=== PATIENT | female | born 1960 | race Two or more races ===

== ENCOUNTER 2016-11-25 20:01 | Emergency (ER) | payer MEDICAID ==
[~2016-11-25] VITALS: Ht 167.6 cm; Wt 49.9 kg
[2016-11-25 20:11] VITALS: BP 150/86
== END 2016-11-25 23:31 | disposition home or self-care (01) ==
LOC: ER 20:03
DX: F41.9 Anxiety disorder, unspecified (principal); G47.00 Insomnia, unspecified; F32.9 Major depressive disorder, single episode, unspecified
CPT/HCPCS: A4606; Z7610

== ENCOUNTER 2016-12-02 11:11 | Emergency (ER) | payer MEDICAID ==
[~2016-12-02] VITALS: Ht 167.6 cm; Wt 49.9 kg
--- NOTE | 2016-12-02 11:40 | NUR ---
DR ALEXANDER AT BEDSIDE FOR EVAL.
--- NOTE | 2016-12-02 11:45 | NUR ---
LEHR OPERATOR AT BEDSIDE FOR BLOOD DRAW.
[2016-12-02 11:50] LABS: BASOPHILS # (AUTO) 0.1 /CMM (0.0-0.2); BASOPHILS % (AUTO) 0.7 % (0.0-2.0); EOSINOPHILS % (AUTO) 0.5 % (0.0-6.0); HEMATOCRIT 44 % (33-45); HEMOGLOBIN 14.4 g/dL (11.5-14.8); LYMPHOCYTES # (AUTO) 1.2 /CMM (0.8-4.8); LYMPHOCYTES % (AUTO) 16.9 % (20.0-44.0); MEAN CORPUSCULAR HEMOGLOBIN 33 PG (26.0-33.0); MEAN CORPUSCULAR HGB CONC 33 g/dl (31.0-36.0); MEAN CORPUSCULAR VOLUME 101 fL (82-100); MONOCYTES # (AUTO) 0.5 /CMM (0.1-1.30); MONOCYTES % (AUTO) 7.4 % (2.0-12.0); NEUTROPHILS # (AUTO) 5.4 /CMM (1.8-8.9); NEUTROPHILS % (AUTO) 74.5 % (43.0-81.0); PLATELET COUNT (AUTO) 339 /CMM (150-450); RDW COEFFICIENT OF VARIATION 11.6 (11.5-15.0); RED BLOOD CELL COUNT(AUTO) 4.36 MIL/uL (4.0-5.2); WHITE BLOOD COUNT (AUTO) 7.2 K/uL (4.3-11.0)
[2016-12-02 12:02] LABS: CALCIUM, SERUM 9.3 mg/dL (8.5-10.1); CARBON DIOXIDE 28 mmol/L (21-32); CHLORIDE 102 mmol/L (98-107); CREATININE 0.7 mg/dL (0.6-1.3); GFR 87 mL/min (>60); GLUCOSE 108 mg/dL (74-106); POTASSIUM 3.7 mmol/L (3.5-5.1); SODIUM SERUM 137 mmol/L (136-145); UREA NITROGEN, BLOOD 16 mg/dL (7-18)
[2016-12-02 12:07] LABS: ALANINE AMINOTRANSFERASE 18 U/L (12-78); ALBUMIN 3.9 g/dL (3.4-5.0); ALCOHOL, BLOOD < 3 mg/dL (0-0); ALKALINE PHOSPHATASE 63 U/L (46-116); ASPARTATE AMINOTRANSFERASE 18 U/L (15-37); BILIRUBIN,DIRECT 0.1 mg/dL (0.0-0.2); BILIRUBIN,TOTAL 0.5 mg/dL (0.2-1.0); TOTAL PROTEIN, SERUM 7.3 g/dL (6.4-8.2)
[2016-12-02 12:07] LABS: APPEARANCE,URINE Slightly Cloudy (CLEAR); BILIRUBIN,URINE Negative (NEGATIVE); BLOOD, URINE Trace-lysed Ery/uL (NEGATIVE); COLOR,URINE Yellow (YELLOW); KETONES,URINE Negative (NEGATIVE); LEUKOCYTE ESTERASE ,URINE Large (NEGATIVE); NITRITE, URINE Negative (NEGATIVE); PROTEIN,URINE Negative (NEGATIVE); UGLUCOSE Negative (NEGATIVE); UROBILINOGEN,URINE 0.2 EU/dL (0.2)
[2016-12-02 12:08] LABS: ACETAMINOPHEN 0 ug/ml (10-30); SALICYLATE 0.9 mg/dL (2.8-20.0)
--- NOTE | 2016-12-02 12:14 | NUR ---
CALLED FLORENTINO FOR PSYCH EVAL.
[2016-12-02 12:15] LABS: ADD URINE CULTURE YES; BACTERIA,URINE 1+ /HPF (None Seen); SQUAMOUS EPITHELIAL CELL,UR Few /HPF (None Seen); URINE AMORPHOUS PHOSPHATES Few /HPF (None Seen)
[2016-12-02 12:20] LABS: CANNABINOID, URINE NEGATIVE (NEGATIVE); PHENCYCLIDINE SCREEN,URINE NEGATIVE (NEGATIVE)
--- NOTE | 2016-12-02 13:12 | NUR ---
FLORENTINO AT BEDSIDE FOR PSYCH EVAL.
--- NOTE | 2016-12-02 14:26 | NUR ---
Patient discharged to home in stable condition. Written and verbal after care instructions given. Patient verbalizes understanding of instruction.
[2016-12-02 14:28] VITALS: BP 132/98
== END 2016-12-02 14:28 | disposition home or self-care (01) ==
LOC: ER 11:17
DX: F41.9 Anxiety disorder, unspecified (principal); G47.00 Insomnia, unspecified; F32.9 Major depressive disorder, single episode, unspecified
CPT/HCPCS: 36415; 80048; 80076; 80305; 80329; 81001; 85025; 87077; 87086; 87186; 99284; A4606; G0480 ×2; Z7610; 81000-TC; G6039-TC

== ENCOUNTER 2016-12-07 07:04 | Emergency (ER) | payer MEDICAID ==
[~2016-12-07] VITALS: Ht 167.6 cm; Wt 48.5 kg
--- NOTE | 2016-12-07 07:55 | NUR ---
AAOX3, CAME TO ER C/O ANXIETY, UNABLE TO SLEEP, DENIES SI PT STATES "BEEN ANXIOUS WITH MY HEART BEATING SO FAST FOR 6 WEEKS AND CANT SLEEP" "NOT SURE WHAT TO DO"; DENIES SI/HI. 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 DR MARR AT FOR EVAL. WILL CONTINUOUSLY MONITOR THE PATIENT.
[2016-12-07 08:03] VITALS: BP 118/85
--- NOTE | 2016-12-07 08:03 | NUR ---
Patient discharged to home in stable condition. Written and verbal after care instructions given. Patient verbalizes understanding of instruction.
== END 2016-12-07 08:04 | disposition home or self-care (01) ==
LOC: ER 07:06
DX: G47.00 Insomnia, unspecified (principal); F41.9 Anxiety disorder, unspecified; F32.9 Major depressive disorder, single episode, unspecified
CPT/HCPCS: 99284; A4606; Z7610

== ENCOUNTER 2017-02-25 15:23 | Inpatient (IN) | payer BC, MEDICAID, OTHER ==
[~2017-02-25] VITALS: Ht 167.6 cm; Wt 56.7 kg
--- NOTE | 2017-02-25 15:50 | NUR ---
PT BIBA EX FOR SUICIDAL THOUGHTS. PT NOTED ANXIOUS, DENIES ACTIVE PLANS ON HURTING HERSELF, COOPERATIVE. AAOX3. AT FOR EVAL. VSS. SAFETY AND COMFORT MEASURES PROVIDED. WILL MONITOR.
[2017-02-25] MEDS ORDERED: LORAZEPAM 1 MG TABLET ONE (15:55)
[2017-02-25] MEDS ORDERED: LORAZEPAM 1 MG TABLET PO ONE (16:00)
[2017-02-25 16:08] LABS: BASOPHILS # (AUTO) 0.1 /CMM (0.0-0.2); BASOPHILS % (AUTO) 0.8 % (0.0-2.0); EOSINOPHILS # (AUTO) 0.1 /CMM (0.0-0.7); EOSINOPHILS % (AUTO) 1.7 % (0.0-6.0); HEMATOCRIT 41 % (33-45); LYMPHOCYTES # (AUTO) 1.7 /CMM (0.8-4.8); LYMPHOCYTES % (AUTO) 26.3 % (20.0-44.0); MEAN CORPUSCULAR HEMOGLOBIN 35 PG (26.0-33.0); MEAN CORPUSCULAR HGB CONC 34 g/dl (31.0-36.0); MEAN CORPUSCULAR VOLUME 101 fL (82-100); MONOCYTES # (AUTO) 0.6 /CMM (0.1-1.30); MONOCYTES % (AUTO) 9.5 % (2.0-12.0); NEUTROPHILS # (AUTO) 3.9 /CMM (1.8-8.9); NEUTROPHILS % (AUTO) 61.7 % (43.0-81.0); PLATELET COUNT (AUTO) 278 /CMM (150-450); RDW COEFFICIENT OF VARIATION 11.3 (11.5-15.0); RED BLOOD CELL COUNT(AUTO) 4.06 MIL/uL (4.0-5.2); WHITE BLOOD COUNT (AUTO) 6.4 K/uL (4.3-11.0)
--- NOTE | 2017-02-25 16:16 | NUR ---
PT MEDICATED ORDERED.
[2017-02-25 16:18] LABS: CALCIUM, SERUM 8.8 mg/dL (8.5-10.1); CARBON DIOXIDE 29 mmol/L (21-32); CHLORIDE 108 mmol/L (98-107); CREATININE 0.7 mg/dL (0.6-1.3); GLUCOSE 102 mg/dL (74-106); SODIUM SERUM 143 mmol/L (136-145); UREA NITROGEN, BLOOD 27 mg/dL (7-18)
[2017-02-25 16:20] LABS: APPEARANCE,URINE Clear (CLEAR); BILIRUBIN,URINE Negative (NEGATIVE); BLOOD, URINE Negative Ery/uL (NEGATIVE); COLOR,URINE Yellow (YELLOW); KETONES,URINE Negative (NEGATIVE); LEUKOCYTE ESTERASE ,URINE Small (NEGATIVE); NITRITE, URINE Negative (NEGATIVE); PH,URINE 5.5 (5.0-8.0); PROTEIN,URINE Trace mg/dl (NEGATIVE); UGLUCOSE Negative (NEGATIVE); UROBILINOGEN,URINE 0.2 EU/dL (0.2)
[2017-02-25 16:35] LABS: ALANINE AMINOTRANSFERASE 20 U/L (12-78); ALBUMIN 3.6 g/dL (3.4-5.0); ALCOHOL, BLOOD < 3 mg/dL (0-0); ALKALINE PHOSPHATASE 55 U/L (46-116); ASPARTATE AMINOTRANSFERASE 14 U/L (15-37); BILIRUBIN,DIRECT 0.1 mg/dL (0.0-0.2); BILIRUBIN,TOTAL 0.3 mg/dL (0.2-1.0); TOTAL PROTEIN, SERUM 6.8 g/dL (6.4-8.2)
[2017-02-25 16:37] LABS: SALICYLATE 1.4 mg/dL (2.8-20.0)
--- NOTE | 2017-02-25 16:37 | NUR ---
CRISTINA ETA 1 HOUR FOR PSYCH EVAL
[2017-02-25 16:38] LABS: ACETAMINOPHEN < 2 ug/ml (10-30)
[2017-02-25 16:39] LABS: BACTERIA,URINE Rare /HPF (None Seen); RBC,URINE NONE SEEN /HPF (0-2); SQUAMOUS EPITHELIAL CELL,UR Few /HPF (None Seen)
[2017-02-25] MEDS ORDERED: CIPROFLOXACIN HCL 500 MG TABLET PO ONE (17:00)
[2017-02-25] MEDS ORDERED: CIPROFLOXACIN HCL 500 MG TABLET ONE (17:08)
[2017-02-25] MEDS ORDERED: OLAN5TAB3 PO (17:11)
[2017-02-25] MEDS ORDERED: METO25TA6 PO (17:11)
[2017-02-25] MEDS ORDERED: MIRT30TA7 PO (17:11)
[2017-02-25] MEDS ORDERED: LORA0.5T PO (17:11)
[2017-02-25] MEDS ORDERED: LEVO88TA5 PO (17:11)
--- NOTE | 2017-02-25 17:15 | NUR ---
CRISTINA LANG COIL WINDING SUPERVISOR AT FOR EVAL.
--- NOTE | 2017-02-25 18:14 | NUR ---
REPORT GIVEN TO NEGAR LANG FOR GPS ROOM 216-B
--- NOTE | 2017-02-25 18:56 | NUR ---
PT. ARRIVED IN THE UNIT VIA A WHEELCHAIR AND WHEELED BY ER STAFF WITH THE EX-. PT. BROUGHT TO ROOM 216B, CONTRABAND DONE BY WOOL SORTER AND V/S TAKEN. DR. HERBERT NOTIFIED ABOUT THE ADMISSION AND GAVE ORDERS. ENDORSED TO THE INCOMING NURSE FOR THE COMPLETION OF THE ADMISSION.
[2017-02-25] MEDS ORDERED: MAG HYDROX/AL HYDROX/SIMETH 30 ML UDC PO PRN (19:00)
[2017-02-25] MEDS ORDERED: ACETAMINOPHEN 325 MG TABLET PO PRN (19:00)
[2017-02-25 19:21] VITALS: BP 98/70
[2017-02-25 20:00] VITALS: BP 98/70
--- NOTE | 2017-02-25 21:36 | NUR ---
GPS RN ADMITTED NOTES ADMITTED THIS 56Y/O FEMALE FROM [facility] ER/HOME , PT. CAME TO THE UNIT VIA STRETCHER ACCOMPANIED VIA ER STAFF. IS ON 5150 HOLD FOR DANGER TO SELF PER HOLD PT HAVING SUICIDAL IDEATION WITH PLAN TO OVER DOSE ON PILLS AND CUT WRIST WITH A KNIFE AND HAVING DELUSIONAL THINKING ,PARANOIA ,UPON ASSESSMENT PT. DENIES SUICIDAL PLAN AT TIS TIME , PT. AGGRESSIVE ANXIOUS , MENTAL HX DEPRESSION ANXIETY , MEDICAL HX OF HYPERTENSION. PT. REFUSED SKIN ASSESSMENT PT. STATED MY SKIN CLEAR, ENCOURAGED FOR SKIN ASSESSMENT STILL REFUSED , BOTH MD AWARE OF NEW ADMISSION NEW ORDERS RECEIVED AND CARRIED OUT, REORIENT TO UNIT POLICES AND CONTRABAND CHECKS , WILL CONTINUE TO MONITOR FOR SAFETY AND BEHAVIOR
--- NOTE | 2017-02-25 22:00 | NUR ---
RN GPS NOTES DR. LEDEZMA HERE IN THE UNIT , NOTIFY ABOUT PT. RECEIVED IN [facility] ER KEFLEX 500MG PO X1 , NO NEW ORDERS RECEIVE
[2017-02-26] MEDS: TEMAZEPAM 7.5 MG CAPSULE PO PRN ×2 (00:46→21:31)
[2017-02-26 03:27] VITALS: BP 110/72
--- NOTE | 2017-02-26 06:35 | NUR ---
RN GPS NOTES PT. SLEPT 5 HOURS , DENIES SUICIDAL IDEATION DURING SHIFT , NO ACUTE DISTRESS NOTED ,ENDORSE TO NEXT SHIFT FOR CONTINUITY OF CARE .
--- NOTE | 2017-02-26 07:22 | NUR ---
RN GPS NOTES PT. REFUSED MRSA SCREENING AND SKIN ASSESSMENT ENCOURAGED, STILL REFUSED .
[2017-02-26 08:00] VITALS: BP 100/68
[2017-02-26 08:14] LABS: ALBUMIN 3.2 g/dL (3.4-5.0); BILIRUBIN,TOTAL 0.3 mg/dL (0.2-1.0); CALCIUM, SERUM 8.8 mg/dL (8.5-10.1); CREATININE 0.7 mg/dL (0.6-1.3); POTASSIUM 4.4 mmol/L (3.5-5.1); TOTAL PROTEIN, SERUM 6.1 g/dL (6.4-8.2)
[2017-02-26] MEDS: LEVOTHYROXINE SODIUM 88 MCG TABLET PO SCH ×2 (08:36→08:50)
[2017-02-26] MEDS: METOPROLOL TARTRATE 25 MG TABLET PO SCH ×2 (08:54→17:00)
[2017-02-26] MEDS: LORAZEPAM 0.5 MG TABLET PO PRN (09:18)
--- NOTE | 2017-02-26 09:19 | NUR ---
BROILER CHEF OR COOK-NOTES PATIENT REQUESTING ATIVAN FOR HER ANXIETY. ATIVAN 1MG P.O GIVEN PRN ORDER. WILL CONT. MONITORING FOR SAFETY AND BEHAVIOR.
[2017-02-26] MEDS: DULOXETINE HCL 30 MG CAPSULE.DR PO SCH (12:48)
[2017-02-26 16:00] VITALS: BP 102/71
[2017-02-26] MEDS: QUETIAPINE FUMARATE 25 MG TABLET PO SCH (16:46)
--- NOTE | 2017-02-26 18:17 | NUR ---
CURING BIN OPERATOR-NOTES PATIENT STRONGLY REFUSED BODY CHECK DESPITE EXPLANATIONS OF HOSPITAL POLICIES.
[2017-02-26 20:07] VITALS: BP 107/73
[2017-02-26] MEDS: CEPHALEXIN MONOHYDRATE 500 MG CAPSULE PO SCH (21:31)
[2017-02-26] MEDS ORDERED: QUETIAPINE FUMARATE 25 MG TABLET PO SCH (22:00)
--- NOTE | 2017-02-26 23:43 | NUR ---
PT C/O INSOMNIA. RESTORIL 7.5 MG/PO GIVEN AT 2131 HRS. EFFECTIVE. POST 1 HOUR ASLEEP IN BED EASY TO AROUSE. WILL CONTINUE TO MONITOR. FREQUENT VISUAL CHECK DONE.
[2017-02-27] MEDS: LEVOTHYROXINE SODIUM 88 MCG TABLET PO SCH (07:34)
[2017-02-27 08:00] VITALS: BP 128/74
[2017-02-27] MEDS: CEPHALEXIN MONOHYDRATE 500 MG CAPSULE PO SCH ×2 (08:42→20:32)
[2017-02-27] MEDS: DULOXETINE HCL 30 MG CAPSULE.DR PO SCH (08:42)
[2017-02-27] MEDS: QUETIAPINE FUMARATE 25 MG TABLET PO SCH ×3 (08:43→20:32)
[2017-02-27] MEDS: METOPROLOL TARTRATE 25 MG TABLET PO SCH ×2 (08:44→16:48)
[2017-02-27] MEDS: LORAZEPAM 0.5 MG TABLET PO PRN ×2 (11:18→17:45)
--- NOTE | 2017-02-27 11:19 | NUR ---
RUG TOUCH UP PAINTER-NOTES NOTED PATIENT PACING IN AND OUT HER ROOM,FOCUSING ON HER HEALTH AND CLAIMING SHE WAS NEVER SEEN BY ANY OF THE DOCTORS SINCE HER ADMISSION. PER RECORD SHE WAS SEEN BY BOTH PSYCHIATRIST AND MEDICAL DOCTORS. REDIRECTED RE ASSURED PATIENT THAT MD'S ARE GOING TO SEE HER AGAIN TODAY. OFFERED ATIVAN AND AGREES. ATIVAN 1MG P.O GIVEN PRN ORDER.WILL CONT. MONITORING FOR SAFETY AND BEHAVIOR.
--- NOTE | 2017-02-27 13:10 | NUR ---
Patient lives alone at [id number] [place], [place] [id number]. Per patient, she is supposed to be vacating her apartment in 10 days. Patient will possibly need placement. antique auto museum maintenance worker spoke to patient's sister Karina ([phone]) and patient's ex- Taurus Gonsalez ([phone]) who confirmed that patient will have to vacate her apartment and that patient does not have any income. antique auto museum maintenance worker will help form a safe and proper discharge.
--- NOTE | 2017-02-27 14:02 | NUR ---
UR Update: lunchroom worker lindsay Tiara ([phone] ext. [phone]) pillowcase cleaner [facility] a voicemail with a clinical review. lunchroom worker will follow-up. Addendum: 02/27/17 at 1405 by JANKI KONG Authorization # [id number]
[2017-02-27] MEDS: ASPIRIN 81 MG TAB.CHEW PO SCH (15:17)
[2017-02-27 16:00] VITALS: BP 103/73
--- NOTE | 2017-02-27 16:18 | NUR ---
UR Update: clothing trades workers spoke to Tiara ([phone] ext. [phone]) immigration case manager for [facility] who authorized another day with a review due Wednesday March 01, 2017. farmworker rice will follow- up. Authorization # [id number]
--- NOTE | 2017-02-27 17:47 | NUR ---
OUTBOUND SALES REPRESENTATIVE-NOTES PATIENT REQUESTING ATIVAN FOR HER ANXIETY. ATIVAN 1MG P.O GIVEN PRN ORDER. WILL CONT. MONITORING FOR SAFETY AND BEHAVIOR.
--- NOTE | 2017-02-27 17:49 | NUR ---
EAP SPECIALIST-NOTES PATIENT AMBULATING IN THE HALLWAY,NO ACUTE DISTRESS NOTED.ALL NEEDS ATTENDED AND ANTICIPATED. ENDORSED TO THE CHARGE NURSE FOR CONTINUITY OF CARE.
[2017-02-27] MEDS: MAGNESIUM HYDROXIDE 30 ML UDC PO PRN (20:32)
[2017-02-27] MEDS ORDERED: QUETIAPINE FUMARATE 25 MG TABLET PO SCH (22:00)
[2017-02-27 22:30] VITALS: BP 108/79
[2017-02-28] MEDS: TEMAZEPAM 7.5 MG CAPSULE PO PRN ×2 (00:31→21:37)
[2017-02-28] MEDS: LEVOTHYROXINE SODIUM 88 MCG TABLET PO SCH (07:47)
[2017-02-28 08:00] VITALS: BP_SYST 94; BP_SYST 98; BP_DIAS 67; BP_DIAS 70
[2017-02-28] MEDS: DULOXETINE HCL 30 MG CAPSULE.DR PO SCH (08:37)
[2017-02-28] MEDS: CEPHALEXIN MONOHYDRATE 500 MG CAPSULE PO SCH ×2 (08:37→21:31)
[2017-02-28] MEDS: ASPIRIN 81 MG TAB.CHEW PO SCH (08:37)
[2017-02-28] MEDS: QUETIAPINE FUMARATE 25 MG TABLET PO SCH ×2 (08:38→21:31)
[2017-02-28] MEDS: METOPROLOL TARTRATE 25 MG TABLET PO SCH ×2 (09:00→17:16)
[2017-02-28] MEDS: LORAZEPAM 0.5 MG TABLET PO PRN ×2 (11:27→18:10)
--- NOTE | 2017-02-28 11:28 | NUR ---
PRODUCT SCIENTIST-NOTES PATIENT stated" I NEED ATIVAN FOR HER ANXIETY". ATIVAN 1MG P.O GIVEN PRN ORDER. WILL CONT. MONITORING FOR SAFETY AND BEHAVIOR.
--- NOTE | 2017-02-28 15:10 | NUR ---
gas plant worker spoke to patient's sister Karina ([phone]) who stated that patient will be living with her mother at [address] [facility] [address]. Karina stated that either she or her ex- Taurus Gonsalez ([phone]) would pick her up. gas plant worker will follow-up.
[2017-02-28 16:00] VITALS: BP 116/74
--- NOTE | 2017-02-28 18:11 | NUR ---
MAMMAL CONTROL AGENT-NOTES PATIENT C/O ANXIETY AND REQUESTING FOR ATIVAN. ATIVAN 1MG P.O GIVEN PRN ORDER. WILL CONT. MONITORING FOR SAFETY AND BEHAVIOR.
--- NOTE | 2017-02-28 19:45 | NUR ---
RN OPENING NOTES RECEIVED REPORT FROM DAYSHIFT RN. FOUND Pt ASLEEP IN ROOM. EQUAL CHEST RISE AND FALL. NO S/S OF ACUTE DISTRESS OR SOB NOTED. SAFETY MEASURES IN PLACE. WILL CONTINUE TO MONITOR Pt THROUGHOUT THE NIGHT FOR SAFETY AND BEHAVIOR.
[2017-02-28 21:16] VITALS: BP 99/63
[2017-02-28] MEDS: MAGNESIUM HYDROXIDE 30 ML UDC PO PRN (21:36)
[2017-02-28 22:00] VITALS: BP 99/63
--- NOTE | 2017-03-01 06:45 | NUR ---
RN CLOSING NOTES NO SIGNIFICANT CHANGES NOTED DURING THE NIGHT. ALL NEEDS MET AND ATTENDED TO. NO S/S OF ACUTE DISTRESS OR SOB NOTED. SAFETY MEASURES IN PLACE. WILL ENDORSE TO DAYSHIFT RN FOR Pt's TUNG.
[2017-03-01 08:05] VITALS: BP 91/71
[2017-03-01] MEDS: LEVOTHYROXINE SODIUM 88 MCG TABLET PO SCH (08:27)
[2017-03-01] MEDS: DULOXETINE HCL 30 MG CAPSULE.DR PO SCH (08:52)
[2017-03-01] MEDS: ASPIRIN 81 MG TAB.CHEW PO SCH (08:53)
[2017-03-01] MEDS: QUETIAPINE FUMARATE 25 MG TABLET PO SCH ×3 (08:54→21:12)
[2017-03-01] MEDS: METOPROLOL TARTRATE 25 MG TABLET PO SCH ×2 (08:54→17:22)
[2017-03-01] MEDS: LORAZEPAM 0.5 MG TABLET PO PRN ×2 (09:36→17:23)
--- NOTE | 2017-03-01 09:36 | NUR ---
administered ativan 1 mg po prn for anxiety per patient request bp -103/65, p-79, continued monitoring.
--- NOTE | 2017-03-01 15:04 | NUR ---
UR Update: pressed or blown glass worker lindsay Menjivar ([phone] ext. [phone]) lining caser for [facility] a voicemail with a clinical review. pressed or blown glass worker will follow-up. Authorization # [id number]
[2017-03-01 16:11] VITALS: BP 105/73
--- NOTE | 2017-03-01 17:23 | NUR ---
ADMINISTERED ATIVAN 1 MG PO PRN FOR ANXIETY, PER PATIENT REQUEST, V/S TAKEN BP-116/75, P-101, CONTINUED MONITORING.
[2017-03-01] MEDS: MAGNESIUM HYDROXIDE 30 ML UDC PO PRN (18:41)
--- NOTE | 2017-03-01 18:41 | NUR ---
ADMINISTERED MILK OF MAGNESIA 30 MG/ML PO PRN FOR CONSTIPATION, CONTINUED MONITORING.
[2017-03-01 20:07] VITALS: BP 105/57
[2017-03-01] MEDS: TEMAZEPAM 7.5 MG CAPSULE PO PRN (21:31)
[2017-03-02] MEDS: LEVOTHYROXINE SODIUM 88 MCG TABLET PO SCH (07:59)
[2017-03-02 08:00] VITALS: BP 102/69
[2017-03-02] MEDS: DULOXETINE HCL 30 MG CAPSULE.DR PO SCH (08:00)
[2017-03-02] MEDS: METOPROLOL TARTRATE 25 MG TABLET PO SCH ×2 (08:00→16:59)
[2017-03-02] MEDS: ASPIRIN 81 MG TAB.CHEW PO SCH (08:00)
[2017-03-02] MEDS: QUETIAPINE FUMARATE 25 MG TABLET PO SCH ×4 (08:00→21:28)
[2017-03-02] MEDS: LORAZEPAM 0.5 MG TABLET PO PRN (11:11)
--- NOTE | 2017-03-02 11:12 | NUR ---
GPS RN: ATIVAN 1MG ADMINISTERED FOR C/O ANXIETY, PATIENT IS RESTLESS, INSTRUCTED ON RELAXATION, DEEP BREATHING, PROVIDED WITH CALM AND SAFE ENVIRONMENT. NO S/S OF ACUTE DISTRESS, CONTINUE TO MONITOR THE PATIENT.
[2017-03-02 16:00] VITALS: BP 100/67
[2017-03-02] MEDS: BOOST PLUS FOOD-VANILLA 237 ML BOX PO SCH (17:45)
[2017-03-02 19:45] VITALS: BP 103/72
[2017-03-02 20:00] VITALS: BP_SYST 102; BP_SYST 103; BP_DIAS 65; BP_DIAS 72
[2017-03-02] MEDS: TEMAZEPAM 7.5 MG CAPSULE PO PRN (21:29)
[2017-03-03 08:42] VITALS: BP 111/68
[2017-03-03] MEDS: LEVOTHYROXINE SODIUM 88 MCG TABLET PO SCH (08:42)
[2017-03-03] MEDS: ASPIRIN 81 MG TAB.CHEW PO SCH (08:42)
[2017-03-03] MEDS: METOPROLOL TARTRATE 25 MG TABLET PO SCH (08:42)
[2017-03-03] MEDS: QUETIAPINE FUMARATE 25 MG TABLET PO SCH ×2 (08:42→13:31)
[2017-03-03] MEDS: BOOST PLUS FOOD-VANILLA 237 ML BOX PO SCH (08:43)
[2017-03-03] MEDS ORDERED: DULOXETINE HCL 30 MG CAPSULE.DR PO SCH (09:00)
[2017-03-03] MEDS: LORAZEPAM 0.5 MG TABLET PO PRN (09:26)
--- NOTE | 2017-03-03 09:26 | NUR ---
GPS RN: ATIVAN 1MG ADMINISTERED FOR C/O ANXIETY PER PATIENT REQUEST, VS STABLE, CONTINUE TO MONITOR.
--- NOTE | 2017-03-03 14:59 | NUR ---
Discharge Note: Patient was discharged home with her mother [address] [facility]. [facility] [address]. Patient's sister Karina ([phone]) was notified. Patient's son Nolan ([phone]) picked her up via private vehicle. Patient and patient's family was agreeable with the discharge plan and was cooperative upon discharge. Patient denied suicidal and homicidal ideations. Patient has a follow-up appointment at [facility] Friday March 17, 2017 at 10:30am with Dr. Fletcher, [address] [place] [id number] . Patient agreed to follow-up with a psychiatrist within 30 days. Facilitated info to IDT team who are in agreement with discharge arrangement. The multidisciplinary exitcare form was done, printed, signed, and given to the patient.
--- NOTE | 2017-03-03 15:00 | NUR ---
GPS LAW OFFICE RECEPTIONIST NOTES: PATIENT DISCHARGED HOME, PICKED UP BY THE SON YURI, VIA PRIVATE CAR. PATIENT'S CONDITION IS STABLE FOR DISCHARGE, VS STABLE. PATIENT DENIES ANY SI/HI AT THE TIME OF DISCHARGE. ALL BELONGINGS RETURNED TO THE PATIENT, PROPERTY MANAGEMENT FORM SIGNED. PATIENT PROVIDED WITH EDUCATIONAL EXIT CARE AND PRESCRIPTION. PATIENT LEFT THE UNIT AT 1455 ACCOMPANIED BY THE FAMILY AND A STAFF MEMBER.
== END 2017-03-03 14:55 | disposition home or self-care (01) | DRG 885 ==
LOC: ER 15:27 → GPS 18:43
PROVIDERS: ADMIT Psychiatry & Neurology Psychosomatic Medicine; ATTEND Nurse Practitioner Acute Care
DX: F33.3 Major depressive disorder, recurrent, severe with psychotic symptoms (principal); N39.0 Urinary tract infection, site not specified; R45.851 Suicidal ideations; I42.9 Cardiomyopathy, unspecified; F42.9 Obsessive-compulsive disorder, unspecified; F45.22 Body dysmorphic disorder; E03.9 Hypothyroidism, unspecified; I10 Essential (primary) hypertension; F29 Unspecified psychosis not due to a substance or known physiological condition; Z73.6 Limitation of activities due to disability; F41.9 Anxiety disorder, unspecified; R63.4 Abnormal weight loss; Z68.20 Body mass index [BMI] 20.0-20.9, adult; B96.89 Other specified bacterial agents as the cause of diseases classified elsewhere; G47.00 Insomnia, unspecified; F60.4 Histrionic personality disorder
CPT/HCPCS: 36415; 80048-TC; 80053-TC; 80061-TC; 80076-TC; 80305; 81000-TC; 82962-TC; 85025-TC; 87086-TC; 93307-TC; A4606; G0480; Z7610

== ENCOUNTER 2017-03-09 00:54 | Emergency (ER) | payer BC, OTHER ==
[~2017-03-09] VITALS: Ht 172.7 cm; Wt 59.0 kg
[~2017-03-09 00:54] MED LIST: LEVO88TA5 PO; LORA0.5T PO; METO25TA6 PO; MIRT30TA7 PO; OLAN5TAB3 PO
--- NOTE | 2017-03-09 01:00 | NUR ---
TO BED 7 A 56 YO FEMALE PT BIBA#88 PT C/O STABBING CP AT 10/10 X 1 HOUR, PT STATES SHE TOOK ONE OF HER NITRO AND IS NOW PAIN FREE, NO ASPIRIN TAKEN. UPON ARRIVAL TO ER, PATIENT IS AAOX4, VSS. NONDIAPHORETIC. UPPER MARKER. COMFORT MEASURES RENDERED. AWAITING FOR ER MD MARCELO.
[2017-03-09 01:33] LABS: BASOPHILS % (AUTO) 0.8 % (0.0-2.0); EOSINOPHILS # (AUTO) 0.1 /CMM (0.0-0.7); EOSINOPHILS % (AUTO) 2.2 % (0.0-6.0); HEMATOCRIT 36 % (33-45); HEMOGLOBIN 12.8 g/dL (11.5-14.8); LYMPHOCYTES # (AUTO) 2.1 /CMM (0.8-4.8); LYMPHOCYTES % (AUTO) 46.4 % (20.0-44.0); MEAN CORPUSCULAR HEMOGLOBIN 36 PG (26.0-33.0); MEAN CORPUSCULAR HGB CONC 36 g/dl (31.0-36.0); MEAN CORPUSCULAR VOLUME 100 fL (82-100); MONOCYTES # (AUTO) 0.5 /CMM (0.1-1.30); MONOCYTES % (AUTO) 10.8 % (2.0-12.0); NEUTROPHILS # (AUTO) 1.8 /CMM (1.8-8.9); NEUTROPHILS % (AUTO) 39.8 % (43.0-81.0); PLATELET COUNT (AUTO) 211 /CMM (150-450); RDW COEFFICIENT OF VARIATION 11.6 (11.5-15.0); WHITE BLOOD COUNT (AUTO) 4.6 K/uL (4.3-11.0)
[2017-03-09 01:45] LABS: CALCIUM, SERUM 8.6 mg/dL (8.5-10.1); CARBON DIOXIDE 29 mmol/L (21-32); CHLORIDE 108 mmol/L (98-107); CREATININE 0.7 mg/dL (0.6-1.3); GLUCOSE 112 mg/dL (74-106); POTASSIUM 3.5 mmol/L (3.5-5.1); SODIUM SERUM 143 mmol/L (136-145); UREA NITROGEN, BLOOD 21 mg/dL (7-18)
[2017-03-09 01:48] LABS: D-DIMER 0.7 mg/L(FEU (0.17-0.50); PROTHROMBIN TIME 10.7 SECS (9.5-12.7)
[2017-03-09 01:55] LABS: TROPONIN I < 0.017 ng/mL (0.00-0.056)
[2017-03-09] MEDS ORDERED: IOHEXOL-350 100 ML VIAL IV ONE (01:56)
[2017-03-09] MEDS ORDERED: IV NS 0.9% 250 ML IV ONE (01:56)
[2017-03-09] MEDS ORDERED: CT SWABBABLE VALVE TRANS SET 1 EA INFUS.SET MC ONE (01:56)
--- NOTE | 2017-03-09 02:24 | NUR ---
PATIENT REFUSED CTA AND DECIDED TO GO AMA IN SPITE ENCOURAGEMENT AND HEALTH TEACHINGS BY DR PEGUERO. PATIENT SIGNED AMA FORM. IV removed. Catheter intact and site benign. Pressure and 4x4 applied to site. No bleeding noted. Patient discharged to home in stable condition. Written and verbal after care instructions given. Patient verbalizes understanding of instruction. No further complaints.
[2017-03-09 02:25] VITALS: BP 108/64
== END 2017-03-09 02:30 | disposition left against medical advice (07) ==
LOC: ER 00:55
DX: F41.9 Anxiety disorder, unspecified (principal); R07.9 Chest pain, unspecified; R79.1 Abnormal coagulation profile; I10 Essential (primary) hypertension; Z41.1 Encounter for cosmetic surgery
CPT/HCPCS: 36415; 71010-TC; 80048-TC; 84484-TC; 85025-TC; 85378-TC; 85730-TC; A4606; J7050; Q9967; Z7610

== ENCOUNTER 2019-10-14 12:04 | Emergency (ER) | payer BC, OTHER ==
[~2019-10-14] VITALS: Ht 167.6 cm; Wt 54.9 kg
--- NOTE | 2019-10-14 13:00 | NUR ---
patient came in to the er c/o "dizzy spells." nausea. off balance x 1 1/2 weeks s/p head injury 10/02/19. On room air, breathing evenly and unlabored. connected to the monitor and pulse ox. kept comfortable, will continue to monitor accordingly.
[2019-10-14 13:17] LABS: BASOPHILS % (AUTO) 0.7 % (0.0-2.0); EOSINOPHILS % (AUTO) 2.9 % (0.0-6.0); HEMATOCRIT 42 % (33-45); HEMOGLOBIN 14.6 g/dL (11.5-14.8); LYMPHOCYTES # (AUTO) 1.9 /CMM (0.8-4.8); MEAN CORPUSCULAR HGB CONC 34 g/dl (31.0-36.0); MEAN CORPUSCULAR VOLUME 103 fL (82-100); MONOCYTES # (AUTO) 0.5 /CMM (0.1-1.30); MONOCYTES % (AUTO) 9.8 % (2.0-12.0); NEUTROPHILS # (AUTO) 2.3 /CMM (1.8-8.9); NEUTROPHILS % (AUTO) 47.6 % (43.0-81.0); PLATELET COUNT (AUTO) 249 /CMM (150-450); RED BLOOD CELL COUNT(AUTO) 4.11 MIL/uL (4.0-5.2); WHITE BLOOD COUNT (AUTO) 4.9 K/uL (4.3-11.0)
[2019-10-14 13:26] LABS: CALCIUM, SERUM 9.4 mg/dL (8.5-10.1); CARBON DIOXIDE 26 mmol/L (21-32); CHLORIDE 105 mmol/L (98-107); CREATININE 0.7 mg/dL (0.6-1.3); GLUCOSE 87 mg/dL (74-106); POTASSIUM 4.1 mmol/L (3.5-5.1); SODIUM SERUM 140 mmol/L (136-145); UREA NITROGEN, BLOOD 17 mg/dL (7-18)
[2019-10-14] MEDS ORDERED: ONDANSETRON HCL/PF 4 MG/2 ML VIAL IVP ONE (13:30)
[2019-10-14] MEDS ORDERED: MECLIZINE HCL 25 MG TABLET PO ONE (13:30)
[2019-10-14] MEDS ORDERED: IV NS 0.9% 1,000 ML BAG IV ONE (13:30)
[2019-10-14 13:33] LABS: ALANINE AMINOTRANSFERASE 23 U/L (12-78); ALBUMIN 4.3 g/dL (3.4-5.0); ALKALINE PHOSPHATASE 56 U/L (46-116); ASPARTATE AMINOTRANSFERASE 32 U/L (15-37); BILIRUBIN,DIRECT 0.1 mg/dL (0.0-0.2); BILIRUBIN,TOTAL 0.5 mg/dL (0.2-1.0)
[2019-10-14] MEDS ORDERED: MECLIZINE HCL 25 MG TABLET ONE (13:40)
[2019-10-14] MEDS ORDERED: ONDANSETRON HCL/PF 4 MG/2 ML VIAL ONE (13:40)
[2019-10-14 14:05] LABS: APPEARANCE,URINE Clear (CLEAR); BILIRUBIN,URINE Negative (NEGATIVE); BLOOD, URINE Negative Ery/uL (NEGATIVE); COLOR,URINE Yellow (YELLOW); KETONES,URINE Negative (NEGATIVE); LEUKOCYTE ESTERASE ,URINE Negative (NEGATIVE); NITRITE, URINE Negative (NEGATIVE); PROTEIN,URINE Negative (NEGATIVE); UGLUCOSE Negative (NEGATIVE); UROBILINOGEN,URINE 0.2 EU/dL (0.2)
--- NOTE | 2019-10-14 14:45 | NUR ---
IV removed. Catheter intact and site benign. Pressure and 4x4 applied to site. No bleeding noted. Patient discharged to home in stable condition. Written and verbal after care instructions given. Patient verbalizes understanding of instruction.
[2019-10-14 14:46] VITALS: BP 117/86
== END 2019-10-14 14:46 | disposition home or self-care (01) ==
LOC: ER 12:10
DX: R42 Dizziness and giddiness (principal); E03.9 Hypothyroidism, unspecified; I10 Essential (primary) hypertension; Z98.890 Other specified postprocedural states; Z90.89 Acquired absence of other organs; Z79.899 Other long term (current) drug therapy
CPT/HCPCS: 36415; 70450; 80048; 80076; 81001; 84484; 84703; 85025; 85730; 96361; 96374; 99284; J2405; J7030; J8597; 81000-TC